=== PATIENT | male | born 1960 | race Hispanic/Latino ===

== ENCOUNTER → 2020-11-12 | Outpatient (CLI) | payer OTHER | END | disposition home or self-care (01) | LOC: OIH 14:58 | PROVIDERS: ATTEND Internal Medicine | DX: S39.92XA Unspecified injury of lower back, initial encounter (principal); M17.12 Unilateral primary osteoarthritis, left knee; M25.762 Osteophyte, left knee; M47.816 Spondylosis without myelopathy or radiculopathy, lumbar region; X58.XXXA Exposure to other specified factors, initial encounter; Y93.89 Activity, other specified; Y92.89 Other specified places as the place of occurrence of the external cause; Y99.8 Other external cause status | CPT/HCPCS: 72100; 73560 ==